=== PATIENT | female | born 1945 | race Caucasian/White ===

== ENCOUNTER → 2017-03-03 | Outpatient (CLI) | payer MEDICARE, OTHER ==
--- NOTE | 2017-03-03 11:10 | RADIOLOGY REPORT PS360 ---
BONE DENSITOMETRY(HIP:LT SPINE HISTORY: OSTEOPENIA ORDERING PHYSICIAN: Domenic Ellis MD PATIENT AGE: 71 years COMPARISON: 12/22/2014 FINDINGS: The mean BMD density of the hips is 0.695 with a T score of -2.5 consistent with osteoporosis. Fracture risk is high and treatment is suggested if not already implemented. The density of the hips has decreased by 3% compared the previous exam. The L1 L4 density lumbar spine has a T score of -1.3 which is unchanged. IMPRESSION: Osteoporosis of the hips. Recommend follow-up February 2018
== END ==
LOC: RAD 10:09
DX: M85.89 Other specified disorders of bone density and structure, multiple sites (principal)

== ENCOUNTER → 2017-06-03 | Outpatient (CLI) | payer MEDICARE, OTHER ==
--- NOTE | 2017-06-09 11:07 | RADIOLOGY REPORT PS360 ---
DIG MAMM-SCREEN VITA W/CAD CAD Screening ORDERING PHYSICIAN : Domenic Ellis MD PATIENT AGE: 71 years GENDER: Female COMPARISON: Previous mammograms: October 2014, 2016 September 2010 INDICATION: Routine screening no hormones no new complaints previous stereotactic biopsies left breast, with benign findings Family history. Maternal great aunt with breast cancer TECHNIQUE: Standard CC and MLO images were obtained. R2 CAD reviewed. FINDINGS: Fairly Dense inhomogeneous somewhat beaded breast architecture bilaterally which along with scattered calcifications decreased sensitivity of mammography Screening . RIGHT BREAST: Stable appearance, and architecture. On previous benign calcifications are slightly denser not of concern can be followed. LEFT BREAST: Similar architecture with no significant new areas of concern. Small ~5 mm likely intramammary node of far lateral left breast is appears similar. Metallic marker at the central breast and superior medial breast again noted from previous stereotactic biopsy. The scattered calcifications tendon the fairly dense punctate with no suspicious grouped calcifications. No significant new findings overall. Annual follow-up would be recommended and encouraged in this patient. IMPRESSION: No significant new findings. Stable mammogram Moderately dense inhomogeneous breast Follow up one year recommended . breast examination be encouraged in this moderately dense inhomogeneous breast BI-RADS CATEGORY: 2_Benign RECOMMENDED FOLLOWUP: 1 YEAR annual mammogram follow-up . (A letter has been sent to the patient regarding results of the study.)
== END ==
LOC: RAD 10:13
DX: Z12.31 Encounter for screening mammogram for malignant neoplasm of breast (principal)
CPT/HCPCS: G0202